=== PATIENT | female | born 1995 | race Hispanic/Latino ===

== ENCOUNTER 2017-10-28 18:53 | Emergency (ER) | payer OTHER, BC ==
[~2017-10-28] VITALS: Ht 147.3 cm; Wt 101.4 kg
[~2017-10-28 18:53] MED LIST: NO CURRENT MEDS
[2017-10-28] MEDS ORDERED: VOLTAREN - GENE75 MG PO (20:16)
[2017-10-28 20:25] VITALS: BP 145/90
== END 2017-10-28 20:25 | disposition home or self-care (01) | DRG 552 ==
LOC: ED 18:53
DX: S16.1XXA Strain of muscle, fascia and tendon at neck level, initial encounter (principal); V49.40XA Driver injured in collision with unspecified motor vehicles in traffic accident, initial encounter